=== PATIENT | male | born 1985 | race Caucasian/White ===

== ENCOUNTER 2021-12-30 12:56 | Emergency (ER) | payer MEDICAID ==
[~2021-12-30] VITALS: Ht 165.1 cm; Wt 76.2 kg
[2021-12-30 13:07] VITALS: BP 130/86
--- NOTE | 2021-12-30 13:17 | NUR ---
GABBY Champion is evaluating patient at bedside
--- NOTE | 2021-12-30 13:25 | NUR ---
RAD AT BEDSIDE
--- NOTE | 2021-12-30 13:38 | NUR ---
Lab at bedside
--- NOTE | 2021-12-30 13:40 | NUR ---
EMT at bedside for EKG
--- NOTE | 2021-12-30 13:48 | NUR ---
LAB AT BEDSIDE
--- NOTE | 2021-12-30 13:48 | NUR ---
36/M BIB SELF WITH C/O LEFT ARM, CHEST PAIN AND JAW PAIN 6/10 CRUSHING PRESSURE, STATES HE WOKE UP WITH NUMBNESS TO FINGERS. DENIES INJURY OR TRAUMA, REPORTS TAKING IBUPROFEN WITH NO RELIEF. NAUSEA NO VOMITING, NO SOB NOTED. A/OX4 MEDHX: DENIES ALLERGIES: NKA
--- NOTE | 2021-12-30 13:58 | NUR ---
GABBY Champion is reevaluating patient at bedside
[2021-12-30 14:15] LABS: BASOPHILS % (AUTO) 0.7 % (0.0-2.0); EOSINOPHILS # (AUTO) 0.1 K/uL (0-0.4); EOSINOPHILS % (AUTO) 1.4 % (0.0-4.0); HEMATOCRIT 49.6 % (36-52); LYMPHOCYTES # (AUTO) 1.7 K/uL (2.0-11.5); LYMPHOCYTES % (AUTO) 24.5 % (20.5-51.1); MEAN CORPUSCULAR HEMOGLOBIN 28 pg (27-31); MEAN CORPUSCULAR HGB CONC 34 g/dL (33-37); MEAN CORPUSCULAR VOLUME 81.4 fL (80-94); MONOCYTES # (AUTO) 0.4 K/uL (0.8-1.0); MONOCYTES % (AUTO) 5.4 % (1.7-9.3); NEUTROPHILS # (AUTO) 4.7 K/uL (1.8-7.7); PLATELET COUNT (AUTO) 229 K/uL (140-450); RED CELL DISTRIBUTION WIDTH 14.2 % (11.6-13.7)
[2021-12-30 14:32] LABS: ALBUMIN 3.9 g/dL (3.4-5.0); ANION GAP 11.8 (8-16); CARBON DIOXIDE 26.5 mmol/L (21-32); POTASSIUM 3.3 mmol/L (3.5-5.1); TOTAL BILIRUBIN 0.5 mg/dL (0.0-1.0)
[2021-12-30] MEDS ORDERED: POTASSIUM CHLORIDE 10 MEQ TABER PO ONE (14:55)
[2021-12-30 15:30] VITALS: BP 127/92
--- NOTE | 2021-12-30 15:31 | NUR ---
Patient discharged with v/s stable. Written and verbal after care instructions given ABOUT PARESTHESIAS AND NON-SPECIFIC CHEST PAIN and explained. Patient verbalized understanding. Ambulatory with steady gait. All questions addressed prior to discharge. Advised to follow up with PMD.
== END 2021-12-30 15:30 | disposition home or self-care (01) ==
LOC: MED 12:56
DX: R07.9 Chest pain, unspecified (principal); R20.2 Paresthesia of skin; R42 Dizziness and giddiness; R20.0 Anesthesia of skin
CPT/HCPCS: 36415; 71045; 80053; 83880; 84484; 85025; 93005; 99285

== ENCOUNTER 2023-04-20 07:30 | Emergency (ER) | payer MEDICAID ==
[~2023-04-20] VITALS: Ht 165.1 cm; Wt 75.8 kg
[2023-04-20 07:52] VITALS: BP 115/75; PULSE 56; RESP 20; TEMP 97.4; O2SAT 97
--- NOTE | 2023-04-20 08:59 | NUR ---
PATIENT WENT TO US
--- NOTE | 2023-04-20 09:10 | NUR ---
PT WAS TAKEN TO ULTRASOUND
[2023-04-20 09:37] LABS: BASOPHILS # (AUTO) 0.1 K/uL (0.00-0.22); BASOPHILS % (AUTO) 0.7 % (0.0-2.0); EOSINOPHILS # (AUTO) 0.3 K/uL (0-0.4); EOSINOPHILS % (AUTO) 3.3 % (0.0-4.0); HEMATOCRIT 50.8 % (36-52); HEMOGLOBIN 17.3 g/dL (12.0-18.0); LYMPHOCYTES # (AUTO) 2.4 K/uL (2.0-11.5); LYMPHOCYTES % (AUTO) 24.8 % (20.5-51.1); MEAN CORPUSCULAR HEMOGLOBIN 28 pg (27-31); MEAN CORPUSCULAR HGB CONC 34 g/dL (33-37); MONOCYTES # (AUTO) 0.5 K/uL (0.8-1.0); MONOCYTES % (AUTO) 5.2 % (1.7-9.3); NEUTROPHILS # (AUTO) 6.5 K/uL (1.8-7.7); PLATELET COUNT (AUTO) 266 K/uL (140-450); RED CELL DISTRIBUTION WIDTH 14.6 % (11.6-13.7); WHITE BLOOD COUNT (AUTO) 9.8 K/uL (4.8-10.8)
[2023-04-20 09:40] VITALS: TEMP 97.4
--- NOTE | 2023-04-20 09:41 | NUR ---
37 Y/0 M FROM HOME PATIENT PRESENTS TO ED WITH MIDLINE EPIGASTRIC PAIN NON RADIATIN. PT STATES HES BEEN IN PAIN FOR 3 DAYS. PT STATES HES HAD SOME NAUSEA BUT DENIES V/D; SKIN IS PINK/WARM/DRY; AAOX4 WITH EVEN AND STEADY GAIT; LUNGS CLEAR BL; HR EVEN AND REGULAR; PT DENIES ANY FEVER, CP, SOB, OR COUGH AT THIS TIME; PATIENT STATES PAIN AT THE TIME WAS 8/10 BUT NOW 0/10 AT THIS TIME; VSS; PATIENT POSITIONED FOR COMFORT; HOB ELEVATED; BEDRAILS UP X2; BED DOWN. CALL LIGHT WITHN IN REACH. ER MD MADE AWARE OF PT STATUS. PMHX NONE ALLERGIES NKA
[2023-04-20 09:44] VITALS: O2SAT 97
[2023-04-20] MEDS ORDERED: ONDANSETRON 4 MG ODT PO ONE (09:50)
[2023-04-20 09:59] LABS: ALBUMIN 3.9 g/dL (3.4-5.0); ANION GAP 8.7 (8-16); CARBON DIOXIDE 30.8 mmol/L (21-32); CREATININE 1.1 mg/dL (0.6-1.3); POTASSIUM 3.5 mmol/L (3.5-5.1); TOTAL BILIRUBIN 0.6 mg/dL (0.0-1.0)
[2023-04-20] MEDS ORDERED: ONDA-188 SL (10:08)
--- NOTE | 2023-04-20 10:08 | NUR ---
PT HAS BEEN MEDICATED PER PROVIDERS ORDERS.
[2023-04-20 10:16] VITALS: BP 112/67; PULSE 74; RESP 17; O2SAT 98
--- NOTE | 2023-04-20 10:18 | NUR ---
Patient discharged with v/s stable. Written and verbal after care instructions given and explained. Patient verbalized understanding. Ambulatory with steady gait. All questions addressed prior to discharge. Advised to follow up with PMD.
== END 2023-04-20 10:18 | disposition home or self-care (01) ==
LOC: MED 07:30
DX: K80.50 Calculus of bile duct without cholangitis or cholecystitis without obstruction (principal); Z79.899 Other long term (current) drug therapy
CPT/HCPCS: 36415; 71045; 76705; 80053; 81002; 83690; 85025; 99284; Q0092; Q0162; 99285

== ENCOUNTER 2024-04-04 06:25 | Emergency (ER) | payer MEDICAID, OTHER ==
[~2024-04-04] VITALS: Ht 165.1 cm; Wt 74.8 kg
[~2024-04-04 06:25] MED LIST: ONDA-188 SL
[2024-04-04 06:26] VITALS: BP 119/68; PULSE 60; RESP 16; TEMP 97.4; O2SAT 97
[2024-04-04] MEDS: KETOROLAC 30 MG/ML VIAL IVP ONE (06:55)
[2024-04-04] MEDS: NACL 0.9% 1,000 ML IV ONE (06:55)
[2024-04-04] MEDS: ONDANSETRON 4 MG/2 ML VIAL IVP ONE (06:56)
[2024-04-04 06:59] LABS: BASOPHILS # (AUTO) 0.1 K/uL (0.00-0.22); BASOPHILS % (AUTO) 1.1 % (0.0-2.0); EOSINOPHILS # (AUTO) 0.3 K/uL (0-0.4); EOSINOPHILS % (AUTO) 3.9 % (0.0-4.0); HEMATOCRIT 46.6 % (36-52); HEMOGLOBIN 15.8 g/dL (12.0-18.0); LYMPHOCYTES # (AUTO) 2.1 K/uL (2.0-11.5); LYMPHOCYTES % (AUTO) 28.4 % (20.5-51.1); MEAN CORPUSCULAR HEMOGLOBIN 28 pg (27-31); MEAN CORPUSCULAR HGB CONC 34 g/dL (33-37); MEAN CORPUSCULAR VOLUME 82.5 fL (80-94); MONOCYTES # (AUTO) 0.5 K/uL (0.8-1.0); MONOCYTES % (AUTO) 6.4 % (1.7-9.3); NEUTROPHILS # (AUTO) 4.4 K/uL (1.8-7.7); NEUTROPHILS % (AUTO) 60.2 % (42.2-75.2); PLATELET COUNT (AUTO) 229 K/uL (140-450); RED BLOOD CELL COUNT(AUTO) 5.65 MIL/uL (4.20-6.10); RED CELL DISTRIBUTION WIDTH 14.3 % (11.6-13.7); WHITE BLOOD COUNT (AUTO) 7.3 K/uL (4.8-10.8)
[2024-04-04 07:02] LABS: APPEARANCE,URINE CLEAR (CLEAR); BILIRUBIN,URINE NEGATIVE (NEGATIVE); BLOOD, URINE NEGATIVE (NEGATIVE); COLOR,URINE YELLOW (YELLOW); LEUKOCYTE ESTERASE ,URINE NEGATIVE (NEGATIVE); NITRITE, URINE NEGATIVE (NEGATIVE); PROTEIN,URINE NEGATIVE (NEGATIVE); UGLUCOSE NEGATIVE (NEGATIVE); UROBILINOGEN,URINE 0.2 EU/dL (0.2 - 1)
[2024-04-04 07:13] LABS: ANION GAP 11.9 (8-16); CALCIUM 8.6 mg/dL (8.5-10.1); CARBON DIOXIDE 25.7 mmol/L (21-32); CREATININE 0.9 mg/dL (0.6-1.3); POTASSIUM 3.6 mmol/L (3.5-5.1)
[2024-04-04 07:17] LABS: ALBUMIN 3.4 g/dL (3.4-5.0); BILIRUBIN,DIRECT 0.1 mg/dL (0.0-0.3); TOTAL BILIRUBIN 0.5 mg/dL (0.0-1.0); TOTAL PROTEIN, SERUM 7.2 g/dL (6.4-8.2)
[2024-04-04] MEDS ORDERED: ONDA-188 SL (08:54)
[2024-04-04] MEDS ORDERED: ACET-10509 PO (08:54)
[2024-04-04] MEDS ORDERED: IBUP-2218 PO (08:54)
[2024-04-04 09:15] VITALS: BP 113/74; PULSE 63; RESP 14; TEMP 97.7; O2SAT 96
== END 2024-04-04 09:15 | disposition home or self-care (01) ==
LOC: MED 06:25
DX: K80.20 Calculus of gallbladder without cholecystitis without obstruction (principal); Z98.890 Other specified postprocedural states; Z79.899 Other long term (current) drug therapy
CPT/HCPCS: 36415; 74176; 80048; 80076; 81003; 83690; 85025; 96361; 96374; 96375; 99285; J1885; J2405; J7030